=== PATIENT | male | born 1950 | race Caucasian/White ===

== ENCOUNTER 2020-12-22 12:12 | Day surgery (SDC) | payer OTHER ==
[~2020-12-22] VITALS: Ht 190.5 cm; Wt 145.1 kg
[~2020-12-22 12:12] MED LIST: CYCL-611 PO; GABA300C10 PO; HYDR-4072 PO; LISI-283 PO; PRAV20TA3 PO
[2020-12-22] MEDS ORDERED: EPINEPHrine HCL 1 MG/1 ML AMP ONE ×2 (12:56→14:16)
[2020-12-22] MEDS ORDERED: LIDOCAINE W/ EPINEPHRINE 1% 20ML VIAL ONE (13:11)
[2020-12-22] MEDS ORDERED: ceFAZolin 1GM/50ML 100 ML IV ONE (13:30)
[2020-12-22] MEDS ORDERED: SUCCINYLCHOLINE CHLORIDE 20 MG/ML 10ML VIAL IV ONE (13:34)
[2020-12-22] MEDS ORDERED: MIDAZOLAM HCL 2MG/2ML 2ml VIAL (1mg/ml) ONE (13:40)
[2020-12-22] MEDS ORDERED: fentaNYL CITRATE 5 ML ONE (13:41)
[2020-12-22] MEDS ORDERED: ONDANSETRON HCL 4 MG/2 ML VIAL ONE (14:51)
[2020-12-22] MEDS ORDERED: NEOSTIGMINE 1 MG/ML INJ (10mg/10ML VIAL) ONE (14:58)
[2020-12-22] MEDS ORDERED: GLYCOPYRROLATE 0.2 MG/ML 1ML VIAL ONE (14:58)
[2020-12-22] MEDS ORDERED: HYDROmorphone HCL 2 MG/ML VL ONE (15:03)
[2020-12-22] MEDS: HYDROmorphone HCL 2 MG/ML VL IV PRN ×4 (15:04→15:34)
[2020-12-22] MEDS ORDERED: ONDANSETRON HCL 4 MG/2 ML VIAL IV PRN (15:15)
[2020-12-22] MEDS ORDERED: HYDROmorphone HCL 2 MG/ML VL IV PRN (15:15)
[2020-12-22 16:15] VITALS: BP 122/74
== END 2020-12-22 16:30 | disposition home or self-care (01) ==
LOC: SUR 12:12
PROVIDERS: ATTEND Orthopaedic Surgery
DX: M23.232 Derangement of other medial meniscus due to old tear or injury, left knee (principal); E66.01 Morbid (severe) obesity due to excess calories; I10 Essential (primary) hypertension; K45.8 Other specified abdominal hernia without obstruction or gangrene; G62.9 Polyneuropathy, unspecified; Z68.41 Body mass index [BMI] 40.0-44.9, adult; Z20.822 Contact with and (suspected) exposure to COVID-19
CPT/HCPCS: 29881; J0171; J0330; J0690; J1170; J2250; J2405; J3010; U0003